=== PATIENT | female | born 1975 | race Caucasian/White ===

== ENCOUNTER 2020-02-12 06:22 | Inpatient (IN) | payer OTHER ==
[2020-02-05 14:56] LABS: Absolute Lymphocytes (CBC) 1.7 K/uL (0.7-4.9); Basophils % 0.5 % (0-1.3); Hematocrit 30.4 % (36.0-45.0); Lymphocytes % 18.5 % (15.3-44.8); MPV 9.1 fL (7.6-11.3); RBC Red Blood Cell Count 4.79 M/uL (3.86-4.86)
[2020-02-05 14:59] LABS: Urine Appearance CLEAR; Urine Bilirubin NEGATIVE (NEG); Urine Blood NEGATIVE (NEG); Urine Color YELLOW; Urine Glucose NEGATIVE (NEG); Urine Protein NEGATIVE (NEG); Urine Specific Gravity 1.025 (1.005-1.030)
[2020-02-05 15:33] LABS: Anisocytosis 3+; Blood Morphology Comment NOTED (NOT SEEN); Platelet Estimate ADEQ; White Blood Cell Scan OK (OK)
[2020-02-05 15:34] LABS: Hypochromasia 2+
[2020-02-05 15:44] LABS: Urine Microscopic Reflex NO UMIC
--- OUTSIDE RECORDS SUMMARY | 2020-02-12 06:24 | XMS REPORT | Continuity of Care Document ---
:1975 Author Organization [facility] t Address [address] [place] [address] [place] [id number] Care Team Providers Name Role Phone Unavailable Unavailable Unavailable Problems This patient has no known problems. Allergies, Adverse Reactions, Alerts Allergy Allergy Status Severity Reaction(s) Onset Inactive Treating Comm ents Source Name Type Date Date Clinician Sulfa Adverse Active rash [facility] Medications Ordered Filled Start Stop Current Ordering Indication Dosage Frequency Signature Comments Components Source Medication Medication Date Date Medication? Clinician (SIG) Name Name Lo Loestrin Lo Loestrin Yes Selvin [address] [facility] Fe Fe 3-19 [facility] Ventolin Ventolin Yes Selvin [address] [facility] HFA HFA 1- [facility] Claritin Claritin Yes Selvin [address] [facility] Immunizations Ordered Filled Immunization Date Status Comments Sourc e Immunization Name Name TDAP- Boostrix TDAP- Boostrix 2018-04-[address] [facility] Procedures This patient has no known procedures. Encounters Start End Encounter Admission Attending Care Care Encounter Source Date/Time Date/Time Type Type Clinicians Facility Department ID 2020-01-29 2020-01-29 Outpatient [facility] [id number] [facility] 2020-01-29 2020-01-29 [facility] [id number] [facility] 2020-01-24 2020-01-24 [facility] [id number] [facility] 2020-01-21 2020-01-21 [facility] [id number] [facility] 2019-10-25 2019-10-25 [facility] [id number] [facility] 14:30[facility]00 14:30:00 [facility] 2019-10-04 2019-10-04 [facility] [id number] [address] 14:30:00 14:30:00 [facility] 2018-09-13 2018-09-13 [facility] [id number] 13[facility]12[facility]00 13[facility]12[facility] 2018-06-16 2018-06-16 [facility] [id number] 16[facility]35[facility]00 16:35:00 [facility] 2018-05-30 2018-05-30 [facility] [id number] [address] 11:15:00 11:15:00 [facility] 2018-05-03 2018-05-03 [facility] [id number] 13:46:00 13:46:00 [facility] Clin[facility] 2018-04-27 2018-04-27 [facility] [id number] 08:10:00 08:10:00 [facility] 2018-04-04 2018-04-04 [facility] [id number] 09:49:00 09:49:00 [facility] 2018-04-03 2018-04-03 Outpatient Donal Quesada [id number] [facility] 13:00:00 13:00:00 t [facility] Clinics Results This patient has no known results.
[2020-02-12] MEDS ORDERED: CEFAZOLIN/SWI 1gm 1 GM/10 ML SYR ONE (06:58)
[2020-02-12] MEDS ORDERED: Ringers Lactate 1,000 ML IV ONE ×2 (06:58→10:32)
[2020-02-12] MEDS ORDERED: CEFAZOLIN/SWI 2gm 2 GM/20 ML SYR ONE (06:58)
[2020-02-12] MEDS ORDERED: BUPIVACAINE 0.25% PF 30 ML VIAL ONE (07:08)
[2020-02-12] MEDS ORDERED: LIDOCAINE 2% MPF 5 ML VIAL ONE (07:17)
[2020-02-12] MEDS ORDERED: ROCURONIUM 50 MG/5 ML VIAL IV ONE (07:17)
[2020-02-12] MEDS ORDERED: FENTANYL CITR 250 MCG/5 ML ONE (07:17)
[2020-02-12] MEDS ORDERED: dexAMETHasone 10 MG/ML VIAL ONE (07:17)
[2020-02-12] MEDS ORDERED: propofoL 200 MG/20 ML VIAL IV ONE (07:17)
[2020-02-12] MEDS ORDERED: ONDANSETRON 4 MG/2 ML VIAL ONE ×2 (07:17→11:24)
[2020-02-12] MEDS ORDERED: MIDAZOLAM HCL 2 MG/2 ML INJ ONE (07:17)
[2020-02-12] MEDS ORDERED: EPHEDRINE SULF 50 MG/ML VIAL ONE (08:06)
[2020-02-12] MEDS ORDERED: KETAMINE HCL 500 MG/5 ML VIAL ONE (08:22)
[2020-02-12] MEDS: Ringers Lactate 1,000 ML IV ONE ×2 (08:28→08:35)
[2020-02-12] MEDS ORDERED: VECURONIUM 10 MG/VIAL IV ONE (08:30)
[2020-02-12] MEDS ORDERED: KETOROLAC 30 MG/ML INJ ONE (10:02)
[2020-02-12] MEDS ORDERED: GLYCOPYRROLATE 0.2 MG/ML SYR ONE (10:10)
[2020-02-12] MEDS ORDERED: NEOSTIGMINE 1 MG/ML -5 ML ONE (10:27)
[2020-02-12] MEDS ORDERED: MORPHINE 10 MG/ML VIAL ONE (10:28)
[2020-02-12] MEDS ORDERED: PROMETHAZINE 25 MG TABLET PO PRN (11:02)
[2020-02-12] MEDS ORDERED: ONDANSETRON 4 MG/2 ML VIAL IV PRN (11:02)
[2020-02-12] MEDS: MEPERIDINE HCL 25 MG/ML SYR ONE ×2 (11:16→11:32)
[2020-02-12] MEDS: HYDROMORPHONE HCL 1 MG/ML INJ ONE ×2 (11:18→11:35)
[2020-02-12] MEDS ORDERED: MORPHINE/NS PCA 50 MG/50 ML PCA.SYRING IV PRN (11:42)
[2020-02-12] MEDS ORDERED: NALOXONE 0.4 MG/ML VIAL IV PRN (11:42)
[2020-02-12 11:44] LABS: Absolute Lymphocytes (CBC) 0.4 K/uL (0.7-4.9); Basophils % 0.3 % (0-1.3); Hematocrit 26.6 % (36.0-45.0); Lymphocytes % 2.1 % (15.3-44.8); MPV 8.8 fL (7.6-11.3); RBC Red Blood Cell Count 4.14 M/uL (3.86-4.86)
[2020-02-12] MEDS: IBUPROFEN 200 MG TAB PO PRN ×2 (11:45→11:50)
[2020-02-12] MEDS ORDERED: IBUPROFEN 200 MG TAB PO ONE (12:04)
[2020-02-12] MEDS: MORPHINE 4 MG/ML SYR ONE ×3 (12:13→14:20)
--- NOTE | 2020-02-12 12:14 | OP ---
Date of Procedure: 02/12/2020 Surgeon: Tara Juares MD Underground Repairer: Russel Muro MD. Preoperative Diagnoses: Menorrhagia, large leiomyomata, and anemia. Postoperative Diagnoses: Menorrhagia, large leiomyomata, and anemia. Procedures Performed: Total abdominal hysterectomy, bilateral salpingectomy. Anesthesia: General endotracheal. Specimens: Uterus and tubes. Complications: No complications. Drains: Vee catheter in place. Findings: Large leiomyoma at the fundus, soft, removed intact with the uterus. Supracervical specim en was taken and then the cervix was removed as a second specimen. The entire cervix was removed. B oth ovaries were unremarkable. Both tubes were taken completely. Indications: The patient is a 44-year-old female with large fibroids who was able to cope with it un til recently. The size of the fibroid has grown significantly and her bleeding has gotten significan t as well and anemia. She underwent all the investigation with ultrasound, then endometrial sampling where there was no atypia or leiomyosarcoma or endometrial adenocarcinoma. She was counseled on all her options including conservative management of the uterine fibroids and in terventional management. She wanted to proceed with a hysterectomy as the mass effect of this was si gnificant. She was consented for total abdominal hysterectomy, bilateral salpingectomy, preservation of the ovar ies and she was consented and brought to the hospital. Her hemoglobin preop was 9 g. Description Of Procedure: 3 g of Ancef were given to this patient, taken back to the OR after being consented. Time-out was done. The patient was put under general anesthesia. Placed in a supine fas hion on the operating table. Abdomen, vulva, vagina and perineum prepped and draped in a sterile [facility] ion and Vee was placed to drain the bladder and legs in a supine fashion without any lithotomy. Th en, lower abdominal midline incision was made with the help of scalpel after going through the entire skin and subcutaneous tissue with a scalpel and the Bovie. Fascia was incised and the entire incisi on extended all the way infraumbilical close to the suprapubic area. Once we got in there, the size of the fiber was large enough that we had to extend the incision around the umbilicus and above maybe 2 cm. Once all this was extended in the usual fashion, then fibroid and the uterus were delivered o utside. On inspecting both lateral aspects, there was no attachment. There was 1 leiomyoma that was anterior and was pedunculated. This was taken out with the help of the LigaSure. Then, after ident ifying the anatomical landmarks, both round ligaments, tubes, mesosalpinx, and the broad ligament and the bladder on both sides, went on to use the LigaSure to take down the utero-ovarian ligament. The n, the mesosalpinx, and tube were taken down. There were large veins dilated supplying the large priti ma. Then, the round ligament was taken down. The peritoneum was opened anteriorly to complete the b ladder flap and posteriorly taken down to the uterosacral. Then, the broad ligament was skeletonized and vessels were isolated, then went on the opposite side and opened the peritoneum at the bladder f lap, connected this to the right side, then went on the left side, dissected all the way, the periton eum to the round ligament. Then, the peritoneum anteriorly between the round ligament and the mesosa lpinx was opened, then the pedicle was opened up. The posterior peritoneum was taken down and the Li gaSure was used to take down the round ligaments. Then, the mesosalpinx and tube were taken down and utero-ovarian ligament taken down. Posterior peritoneum all the way to the posterior uterosacral an d anteriorly the bladder was dissected inferiorly exposing the cervix and vessels were skeletonized o n this side. Then, the vessels were taken down with the help of Tiago clamps on both sides, first o n the left, then on the right side and tied down with sutures. Then, went down to take the Patel cl amps may be about 4 on each side to take down the cardinal ligaments and the paracervical tissue all the way down to the level of the vaginal apex. First, after taking down the uterine vessels, the spe cimen was dissected out and removed with the help of the Bovie, detached from the cervix, then the ce rvix was held with 2 Patel clamps and the rest of the pedicles were taken down to the top of the vag stefano. Anterior vaginal wall was held with the help of a Patel and entered, then dissection carried a ll the way to the sides, then on the side, Tiago clamps were placed on both sides. Then, the cervix was from the vagina with the Benjamin scissors and specimen handed out. The uterine spec imen weighed over 2000 g. The fibroid, the uterus, the proximal tubes attached to the uterus, the distal tubes in a separate sp ecimen were all handed out. Distal tubes were taken down with the help of the LigaSure. Then, the vaginal angles were stitched with the help of a Tiago stitch on each side with 0 Vicryl. Then, 3 [id number] with 0 Vicryl were placed to close the anterior and posterior wall and the c onnective tissue including the uterosacrals in the closure for support of the vaginal apex. The simple stitch was placed on the right side between the angled stitch and the medial stitch for be tter hemostasis and support and connective tissue. After this was done, then thorough irrigation suction was performed. There was excellent hemostasis. The bladder appeared to be completely unremarkable. Went up to check the ovaries and the pedicles and everything was hemostatic. The ureters have no melchor dence of electrical, mechanical, or thermal injury to them. The bladder had adequate urine drainage, 150 mL. After thoroughly irrigating and taking out all the packs that were placed, then closed the peritoneum with the help of a 3-0 Vicryl in a continuous runn ing fashion. Then, fascia was closed with the help of 0 PDS starting from the top, tied down at the level of the arcuate line, then from the bottom up and joined. The subcutaneous tissues were irrigat ed and cleaned . A 3-0 chromic used to close subcutaneous tissues and esmer for skin. Instrument, needle, and sponge counts x3 were correct at the end of the case. The patient tolerated the procedu re well. The EBL was 100. Urine output was 150. She was recovered from anesthesia in the OR and taken to PACU in stable condition. KEYANNA/PAULA Voice ID: [id number] Report ID: [id number]
[2020-02-12 12:51] LABS: Anisocytosis 2+; Blood Morphology Comment NOTED (NOT SEEN); Hypochromasia 1+; Platelet Estimate ADEQ; White Blood Cell Scan OK (OK)
[2020-02-12 15:13] VITALS: O2SAT 77
[2020-02-12] MEDS ORDERED: IBUPROFEN 600 MG TAB PO PRN (16:00)
[2020-02-12 16:09] VITALS: BMI 29.2
[2020-02-12] MEDS: Ringers Lactate 1,000 ML IV SCH (23:15)
[2020-02-13] MEDS ORDERED: hydroCHLOROthiazide 12.5 MG CAP PO SCH (09:00)
[2020-02-13] MEDS ORDERED: lisinopriL 20 MG TAB PO SCH (09:00)
[2020-02-13] MEDS ORDERED: LORATADINE 10 MG TAB PO SCH (09:00)
[2020-02-13] MEDS ORDERED: HOME MED 1 EA UNK (Lisinopril/Hydrochlorothiazide [Lisinopril-Hctz 20-12.5 Mg Tab] 1 EACH) PO SCH (09:00)
[2020-02-13] MEDS: IBUPROFEN 600 MG TAB PO PRN ×3 (10:45→23:20)
[2020-02-13] MEDS: HYDROCODONE/APAP 5/325 MG TAB PO PRN ×2 (13:57→20:15)
[2020-02-13] MEDS: Ringers Lactate 1,000 ML IV SCH ×2 (15:00→22:00)
[2020-02-14] MEDS: HYDROCODONE/APAP 5/325 MG TAB PO PRN ×2 (08:39→14:46)
[2020-02-14] MEDS ORDERED: NA CHLORIDE 0.9% 500 ML ONE (08:45)
[2020-02-14] MEDS: IBUPROFEN 600 MG TAB PO PRN ×2 (10:59→18:00)
--- NOTE | 2020-02-14 11:13 | PREOPHP ---
Date of Admission: 02/12/2020 History Of Present Illness: A 45-year-old female with severe pelvic pain and complex cyst as well as 2 smaller cyst. The patient has had a hysterectomy. Prior to that she had an oophorectomy for larg e right ovarian mass, she said was over 2 pounds and probably had torsion involved in it too. We hav e ordered tumor markers, but they are not back in and patient knows that if we do surgery without sola or markers then it is possible that she could have cancer and she would have to follow up at [facility]. Family History: Not really contributory. The patient is a smoker. She has need to come out. Physical Examination: HEENT: Clear. Pupils equal, round, reactive to light and accommodation. Conjunctivae well perfused . No oral, lingual, or buccal lesions. Chest and Lung: Clear. Heart: Without murmurs. Breasts: Not examined. Abdomen: Soft. Pelvic exam: Shows a mass on the left side, somewhat mobile, but tender. Extremities: Clear without edema, cyanosis, or clubbing. We will proceed with diagnostic laparoscop y, removal of ovary, laparotomy if necessary. BOSSMAN/PAULA Voice ID: [id number]
[2020-02-14 22:04] VITALS: BP 149/84; TEMP 98.9
--- NOTE | 2020-02-15 01:26 | DS ---
Date of Discharge: 02/14/2020 Admission Diagnoses: Large leiomyomata, menorrhagia with fibroids, anemia, chronic blood-loss anemia . Postoperative Diagnoses: Large leiomyomata, menorrhagia with fibroids, anemia, chronic blood-loss an emia. Hospital Course: The patient was admitted electively for an abdominal hysterectomy. Please refer to the operative note for the procedure details. She had an unremarkable lower midline vertical laparo rika incision and an abdominal hysterectomy with bilateral salpingectomy. Ovaries were kept intact. The patient tolerated the procedure well. She was recovered, placed on a FRAME PULLEY MORTISING MACHINE OPERATOR, and Vee catheter le ft in place and transferred to the floor. On day 1, diet advanced, was able to come off the FRAME PULLEY MORTISING MACHINE OPERATOR and oral pain medication, ambulated, and voided after the catheter was removed. Her hemoglobin was 8 g, was slightly weak, but no other new complaints. Vital signs all were stable. On postop day #2, the patient did pretty well, tolerated regular diet, was able to empty without any problems. Positive flatus. No nausea or vomiting. Pain control optimal. Afebrile. Vital signs we re stable. Abdomen is soft, nondistended. Incision clean, dry, and intact with esmer. Dressing t aken down and inspected. Slight ecchymosis at the inferior aspect of the incision. Extremities unre markable. Discharge Plan: 1.Chronic blood-loss anemia. Hemoglobin down to 8 g postoperatively. This was just prior from the hemodilution, but mostly stable. So iron [id number] twice a day with a stool softener to avoid constipation. 2.For her postoperative discharge, she has a 1 week followup after discharge in the office. Appoint ment already made. Narcotic prescription, [place] called into the pharmacy. No antibiotics are cecilia murrell. Patient has been doing well, although her white count on postop day #1 was 18,000. Completely afebrile. So, no antibiotics given and continue regular diet. All instructions to call were given t o the patient preoperatively as well and reviewed with her at the bedside. Fever greater than 101. Abnormal discharge from the incision or redness, any intractable nausea, vomiting, or acute onset of shortness of breath or chest pain or leg swelling were all discussed with the patient. She can showe r and ambulate with activity restrictions less than 10 pounds and resting most of the time. SK/MODL Voice ID: [id number] Report ID: [id number]
== END 2020-02-14 20:10 | disposition home or self-care (01) | DRG 743 ==
LOC: OR 06:22 → 2ND-WC 15:16
PROVIDERS: ADMIT Obstetrics & Gynecology; ATTEND Obstetrics & Gynecology
PROC: 0UB70ZZ Excision of Bilateral Fallopian Tubes, Open Approach (ICD-10-PCS; 2020-02-12)
PROC: 0UT90ZZ Resection of Uterus, Open Approach (ICD-10-PCS; principal; 2020-02-12 07:30)
DX: D25.9 Leiomyoma of uterus, unspecified (principal); N92.0 Excessive and frequent menstruation with regular cycle; D64.9 Anemia, unspecified; F17.200 Nicotine dependence, unspecified, uncomplicated; Z20.828 Contact with and (suspected) exposure to other viral communicable diseases
CPT/HCPCS: 36415; 81003; 81025; 85025; 86850; 86900; 86901; 88307; J0690; J1100; J1170; J2175; J2250; J2270; J2405; J2704; J2710; J3010; J7040; J7120; Q0169; U0002